=== PATIENT | female | born 1960 | race Caucasian/White ===

== ENCOUNTER 2022-10-04 16:16 | Outpatient (CLI) | payer BC, OTHER ==
[2022-10-04 17:26] LABS: #Basophils 0.1 thou/uL (0.0-0.2); #Lymphocytes 0.8 thou/uL (1.20-3.40); #Monocytes 0.4 thou/uL (0.11-0.59); #Neutrophils 8.9 thou/uL (1.40-6.50); %Basophils 0.6 % (0.0-1.0); %Lymphocytes 7.8 % (21.0-51.0); %Neutrophils 87.6 % (42.0-75.0); Hemoglobin 13.7 g/dL (12.0-16.0); Mean Corpuscular HGB CONC 29.8 g/dL (32.0-36.0); Mean Corpuscular Hemoglobin 27.3 pg (27.0-31.0); Mean Corpuscular Volume 91.6 fl (78.0-98.0); Mean Platelet Volume 6.2 fL (7.4-10.4); Platelet Count 442 10x3/uL (130-400); RBC Distribution Width 15.1 % (11.5-14.5); White Blood Cell (WBC) Count 10.2 10x3/uL (4.8-10.8)
[2022-10-04 17:38] LABS: ALT (SGPT) 15 U/L (8-55); AST (SGOT) 19 U/L (5-34); Albumin 4.4 g/dL (3.5-5.0); Alkaline Phosphatase 60 U/L (40-110); Anion Gap 16 mmol/L (10-20); BUN (Urea Nitrogen) 7 mg/dL (9.8-20.1); Bilirubin, Total 0.3 mg/dL (0.2-1.2); Calc. Creatinine Clearance 0 mL/min (70-130); Calcium 9.6 mg/dL (7.8-10.44); Carbon Dioxide 26 mmol/L (22-29); Chloride 98 mmol/L (98-107); Estimated GFR 94; Globulin 2.5 g/dL (2.4-3.5); Glucose 117 mg/dL (70-105); Potassium 4.3 mmol/L (3.5-5.1); Protein, Total 6.9 g/dL (6.0-8.3); Sodium 136 mmol/L (136-145)
[2022-10-04 21:49] LABS: Cardiac Risk 2.9 (Less than 4.5); Cholesterol 193 mg/dl (< 200 Desired); HDL Cholesterol 66 mg/dL (>60 Neg Risk); LDL Cholesterol, Calculated 114 mg/dL; Triglycerides 65 mg/dL (Less than 150)
== END 2022-10-04 16:17 | disposition home or self-care (01) ==
LOC: NAV RAD 16:16
PROVIDERS: ATTEND Family Medicine
DX: M54.6 Pain in thoracic spine (principal); I10 Essential (primary) hypertension; J98.4 Other disorders of lung; R91.8 Other nonspecific abnormal finding of lung field; Z79.899 Other long term (current) drug therapy
CPT/HCPCS: 36415; 71046; 80053; 80061; 85025